=== PATIENT | female | born 1980 | race Two or more races ===

== ENCOUNTER → 2018-11-14 | Outpatient (CLI) | payer OTHER | END | disposition home or self-care (01) | LOC: PRENATAL 10:44 | DX: O99.89 Other specified diseases and conditions complicating pregnancy, childbirth and the puerperium (principal); O09.513 Supervision of elderly primigravida, third trimester; O99.213 Obesity complicating pregnancy, third trimester ==

== ENCOUNTER 2018-12-03 17:59 | Outpatient (CLI) | payer OTHER ==
[2018-12-03] MEDS ORDERED: ASA-EC81 MG PO (20:39)
[2018-12-03] MEDS ORDERED: PRENATABS RX T1 EACH PO (20:40)
== END 2018-12-04 09:46 | disposition home or self-care (01) ==
LOC: OBS/DEL 17:59
DX: O35.8XX0 Maternal care for other (suspected) fetal abnormality and damage, not applicable or unspecified (principal); O60.03 Preterm labor without delivery, third trimester; O23.43 Unspecified infection of urinary tract in pregnancy, third trimester; O99.013 Anemia complicating pregnancy, third trimester; D64.89 Other specified anemias; Z34.03 Encounter for supervision of normal first pregnancy, third trimester

== ENCOUNTER 2018-12-05 04:29 | Inpatient (IN) | payer OTHER ==
[~2018-12-05] VITALS: Ht 160 cm; Wt 98.9 kg
[~2018-12-05 04:29] MED LIST: ASA-EC81 MG PO; PRENATABS RX T1 EACH PO
[2018-12-07] MEDS ORDERED: DERMOPLAST PAIN78 GM TOP (07:54)
== END 2018-12-07 11:06 | disposition home or self-care (01) | DRG 807 ==
LOC: OBS/DEL 04:29 → LDR 08:39 → OB/GYN 08:39
PROVIDERS: ADMIT Obstetrics & Gynecology
PROC: 10E0XZZ Delivery of Products of Conception, External Approach (ICD-10-PCS; principal; 2018-12-05)
PROC: 0W8NXZZ Division of Female Perineum, External Approach (ICD-10-PCS; 2018-12-05)
PROC: 4A1HXCZ Monitoring of Products of Conception, Cardiac Rate, External Approach (ICD-10-PCS; 2018-12-05)
PROC: 4A033R1 Measurement of Arterial Saturation, Peripheral, Percutaneous Approach (ICD-10-PCS; 2018-12-05)
DX: O80 Encounter for full-term uncomplicated delivery (principal); Z37.0 Single live birth; Z3A.38 38 weeks gestation of pregnancy

== ENCOUNTER 2019-04-03 05:48 | Day surgery (SDC) | payer OTHER ==
[~2019-04-03 05:48] MED LIST changes: +DERMOPLAST PAIN78 GM TOP
[2019-04-03] MEDS ORDERED: PEPCID AC20 MG PO (08:46)
== END 2019-04-03 11:00 | disposition home or self-care (01) ==
LOC: AMB-ENDOS 05:48
DX: D13.1 Benign neoplasm of stomach (principal); K44.9 Diaphragmatic hernia without obstruction or gangrene; K29.60 Other gastritis without bleeding